=== PATIENT | male | born 1950 | race Caucasian/White ===

== ENCOUNTER 2021-02-13 10:31 | Emergency (ER) | payer OTHER, MEDICARE, SELFPAY ==
[2021-02-13 10:32] VITALS: BP 140/90; PULSE 94; RESP 20; TEMP 36.7; O2SAT 96; BMI 27.1
[2021-02-13 10:45] VITALS: BP 128/93; PULSE 82; RESP 18; TEMP 37.2; O2SAT 94; O2SAT 95
--- NOTE | 2021-02-13 10:53 | EKG12_ITS ---
Test Reason : SOB Blood Pressure : / mmHG Vent. Rate : 080 BPM Atrial Rate : 080 BPM P-R Int : 162 ms QRS Dur : 096 ms QT Int : 368 ms P-R-T Axes : 061 -45 013 degrees QTc Int : 424 ms Normal sinus rhythm Left anterior fascicular block Abnormal ECG Confirmed by KELSY NEVAREZ, BRINA ([id number]), editor city LETICIA BELLO ([id number]) on 02/17/2021 7:55:35 AM Referred By: BB/RU Confirmed By:BRINA TIERNEY MD
--- NOTE | 2021-02-13 10:54 | EX.ED.DYSGE1 ---
HPI History of Present Illness Chief Complaint: Shortness of Breath Detail of Chief Complaint: Shortness of breath that started 1-1/2 to 2 weeks ago Informant: patient Narrative Narrative: Patient presents to the emergency department stating that he does not feel well. Patient states that he has had a cough for a week and 1/2 to 2 weeks. He complains of exertional dyspnea. Patient has had intermittent fevers and body aches. He has had intermittent nausea and vomiting typically associated with cough. Patient complains of a headache. Patient has had the Covid vaccine. He denies any Covid exposures. Denies sick contacts. Patient is producing some sputum but it is milky white. Prior similar symptoms: No PFSH PFSH Medical History (Updated 02/13/21 @ 13:[address] Corie Womack DO) HTN (hypertension) Leukemia Home Medications amlodipine 5 mg PO/SL DAILY 02/13/21 [History Last Taken Unknown] benzonatate [Tessalon Perles] 100 mg PO TID PRN #20 cap 02/13/21 [Rx Last Taken Unknown] dasatinib 100 mg PO/SL DAILY 02/13/21 [History Last Taken Unknown] folic acid 1 mg PO/SL DAILY 02/13/21 [History Last Taken Unknown] hydrocodone-acetaminophen 1 tab PO Q4H PRN PRN 2 Days #10 tablet 02/13/21 [Rx Last Taken Unknown] hydroxychloroquine 200 mg PO/SL BID 02/13/21 [History Last Taken Unknown] levofloxacin 750 mg PO DAILY #4 tab 02/13/21 [Rx Last Taken Unknown] levofloxacin 750 mg PO DAILY 4 Days #4 tab 02/13/21 [Rx Last Taken Unknown] methotrexate 2.5 mg PO/SL QWEEK 02/13/21 [History Last Taken Unknown] prednisone 10 mg PO/SL PRN PRN 02/13/21 [History Last Taken Unknown] pregabalin 150 mg PO/SL BID 02/13/21 [History Last Taken Unknown] tizanidine 4 mg PO/SL PRN PRN 02/13/21 [History Last Taken Unknown] Allergy/AdvReac Type Severity Reaction Status Date / Time No Known Allergies Allergy Verified 02/13/21 10:54 Surgical History (Updated 02/13/21 @ 10:52 by Siddharth Chi) History of orthopedic surgery Hx of appendectomy Social History Smoking Status: Never smoker ROS ROS ED Constitutional Constitutional ED: Reports systems reviewed and no addt'l complaints, except as documented and fever(s); Denies body ache(s), change in weight or chills Eyes Eyes: Denies acute decrease in peripheral vision, change in vision, double vision or loss of vision ENT ENT ED: Reports none; Denies ear pain, lip swelling, loss taste/smell, neck pain, otalgia or sore throat Cardiovascular Cardiovascular: Reports none; Denies abdominal pain, chest pain with activity, leg edema, lightheadedness, palpitations, rapid heart rate or syncope Respiratory/Chest Respiratory/Chest: Reports none, cough, dyspnea and sputum; Denies change in mental status, dry cough, hemoptysis, shortness of breath at rest or shortness of breath with exertion Gastrointestinal Gastrointestinal: Reports none; Denies abdominal pain, change in stool character, diarrhea, hematemesis, hematochezia, melena, rectal bleeding or vomiting Genitourinary Genitourinary ED: Reports none; Denies abdominal discomfort, anuria, dysuria, genital pain or polyuria Musculoskeletal Musculoskeletal: Reports none and myalgias; Denies arthralgias, back pain, difficulty walking, extremity pain or muscle weakness Integumentary Reports none; Denies abscess or rash Neurologic Neurologic: Reports none and headache(s); Denies abnormal gait, confusion, focal weakness, frequent falls, loss of vision, numbness, paresthesias, radicular pain, vertigo or weakness Psychiatric Psychiatric: Reports systems reviewed and no addt'l complaints, except as documented and none; Denies behavioral changes, confusion, difficulty concentrating, hallucinations, suicidal ideation, tactile hallucinations or visual hallucinations Endocrine Endocrinology: Denies none, cold intolerance, excessive sweating, fatigue or heat intolerance Hematologic/Lymphatic Hematologic/Lymphatic: Reports none; Denies anemia, easy bleeding or easy bruising Allergic/Immunologic Allergic/Immunologic ED: Denies as per HPI, none, lip swelling, mouth swelling, throat swelling, tongue swelling or hives EXAM Physical Exam Const Vital Signs: 02/13/21 10:32 02/13/21 10:45 02/13/21 12:46 Temperature 98.0 F 98.9 F Temperature Source Temporal Temporal Pulse Rate 94 82 75 Respiratory Rate 20 H 18 24 H Respiratory Effort Short of Breath Respiratory Depth Normal Respiratory Pattern Normal Blood Pressure 140/90 H 128/93 H 130/82 H Blood Pressure Mean 106 104 98 Pulse Ox 96 95 95 Oxygen Delivery Method Room Air Room Air Room Air Positive well nourished and well developed General Appearance ED: well developed and NAD HEENT Reports TM's clear and moist mucous membranes normocephalic and atraumatic; Negative for trauma or tenderness Tympanic Membrane ED: Yes TM's clear Eyes PERRL and EOMs intact bilaterally General Eye ED: Negative for pale conjunctiva or scleral icterus Neck no lymphadenopathy, supple and no JVD General: Negative for tenderness Chest Wall inspection of chest normal and palpation of chest normal Chest: Negative for tenderness Resp normal respiratory effort and clear to auscultation bilaterally Effort and Inspection: Negative for respiratory distress or pain with movement Auscultation: Negative for rhonchi, wheezes or diminished lung sounds Cardio regular rate, regular rhythm, S1 normal heart sound, S2 normal heart sound and no murmurs Peripheral Pulses: pulses 2+ throughout GI normal to inspection, nondistended, normoactive bowel sounds, soft to palpation, non-tender, non-distended and no masses Back/Spine no CVA tenderness and no thoracic nor lumbar tenderness Extremity normal to inspection General Extremety ED: Negative for edema General Extremity: Negative for edema Neuro oriented x3, CN's II-XII intact bilaterally, no sensory deficits noted and gait normal Sensorium / Orientation: awake, alert, oriented to person, oriented to place and oriented to time Motor Exam: strength 5/5 throughout and strength abnormal Psych mental status grossly normal Skin no rashes or lesions noted and no wounds MDM MDM MDM Narrative Medical decision making narrative: IV line established on arrival. Patient was given Toradol for headache. His work-up consistent with Covid illness. CTA was negative for PE. He is not hypoxic even with ambulation. He has had symptoms for almost 2 weeks. Patient will be started on Levaquin to prevent bacterial superinfection. He will be given Tessalon Perles and a few [place] for headache and body aches. Patient to follow-up with the primary care physician within next 5 to 7 days. He is advised to return if increasing shortness of breath or condition should worsen anyway. Lab Data Attestation: I reviewed the patient's lab results. Labs: Laboratory Results - last 24 hr 02/13/21 02/13/21 02/13/21 11:14 11:14 11:14 WBC 6.3 RBC 4.52 L Hgb 14.9 Hct 44.1 MCV 97.6 H MCH 33.0 H MCHC 33.8 RDW Std Deviation 54.4 H RDW Coeff of Mannie 15.3 H Plt Count 177 MPV 9.2 Immature Gran % (Auto) 0.300 Neut % (Auto) 75.0 H Lymph % (Auto) 11.6 L Ritchie % (Auto) 9.6 Eos % (Auto) 3.3 Baso % (Auto) 0.2 Absolute Neuts (auto) 4.7 Absolute Lymphs (auto) 0.73 L Nucleated RBC % 0 Differential Comment SCANNED D-Dimer Quant (PE/DVT) 0.68 H* Sodium 137 Potassium 3.8 Chloride 104 Carbon Dioxide 27.0 Anion Gap 6 BUN 11 Creatinine 0.86 Estim Creat Clear Calc 87.56 Est GFR (MDRD) Af Amer 114 Est GFR (MDRD) Non-Af 94 BUN/Creatinine Ratio 12.8 Glucose 106 Lactic Acid Calcium 8.8 Troponin I High Sens 12 COVID-19 ([facility]) 02/13/21 02/13/21 11:14 11:14 WBC RBC Hgb Hct MCV MCH MCHC RDW Std Deviation RDW Coeff of Mannie Plt Count MPV Immature Gran % (Auto) Neut % (Auto) Lymph % (Auto) Ritchie % (Auto) Eos % (Auto) Baso % (Auto) Absolute Neuts (auto) Absolute Lymphs (auto) Nucleated RBC % Differential Comment D-Dimer Quant (PE/DVT) Sodium Potassium Chloride Carbon Dioxide Anion Gap BUN Creatinine Estim Creat Clear Calc Est GFR (MDRD) Af Amer Est GFR (MDRD) Non-Af BUN/Creatinine Ratio Glucose Lactic Acid 1.0 Calcium Troponin I High Sens COVID-19 ([facility]) Positive Radiography Diagnostic Testing: Radiology Impression Chest X-Ray 02/13/21 11:40 IMPRESSION: Bilateral pulmonary infiltrates in a preferential peripheral distribution. Pneumonitis associated with Covid should be ruled out. Electronically Signed: Jeronimo Murillo MD at 12:11 EDT , Service support , Chest CTA 02/13/21 11:57 IMPRESSION: Bilateral peripheral pulmonary infiltrates as described. Pneumonitis associated with Covid should be ruled out. Electronically Signed: Jeronimo Murillo MD at 12:48 EDT , Service support , 1 view chest x-ray obtained interpreted by myself as bilateral infiltrates. Radiology in agreement. EKG Initial EKG: Attestation: I personally reviewed and interpreted this EKG as follows: Comments: Sinus rhythm with a ventricular rate of 80 bpm with left anterior fascicular block Discharge Plan Triage Chief Complaint: Shortness of Breath ED Provider: Corie Womack Dx/Rx/DC Orders Clinical Impression: COVID-19 Instructions: Caring for Someone Who Has COVID-19 Prescriptions: New benzonatate [Tessalon Perles] 100 mg capsule 100 mg PO TID PRN (Reason: cough) Qty: 20 RF: 0 levofloxacin 750 mg tablet 750 mg PO DAILY 4 Days Qty: 4 RF: 0 hydrocodone-acetaminophen [hydrocodone-acetaminophen] 1 TABLET tablet 1 tab PO Q4H PRN PRN (Reason: Pain) 2 Days Qty: 10 RF: 0 levofloxacin 750 mg tablet 750 mg PO DAILY Qty: 4 RF: 0 No Action amlodipine 5 mg PO/SL DAILY RF: 0 dasatinib 100 mg PO/SL DAILY RF: 0 folic acid 1 mg PO/SL DAILY RF: 0 hydroxychloroquine 200 mg PO/SL BID RF: 0 methotrexate 2.5 mg PO/SL QWEEK RF: 0 prednisone 10 mg PO/SL PRN PRN (Reason: Pain) RF: 0 pregabalin 150 mg PO/SL BID RF: 0 tizanidine 4 mg PO/SL PRN PRN (Reason: Spasms) RF: 0 [facility] - Activity Restrictions/Additional Instructions: See your family doctor in 5 to 7 days. Return if increasing shortness of breath or conditions worsen anyway. Disposition Disposition: Home, Self Care
[2021-02-13] MEDS: 0.9% Normal Saline 1,000 ML 150 ML IV (11:17)
--- NOTE | 2021-02-13 11:40 | RAD_ITS ---
STUDY: X-RAY CHEST REASON FOR EXAM: Male, 70 years old. One-week history of body aches and cough. Headaches. TECHNIQUE: Single AP portable view of the chest. COMPARISON: Comparison is made with prior study dated 07/20/2011. FINDINGS: EKG electrodes are seen. Bilateral pulmonary infiltrates and a preferential peripheral distribution worse in the left hemithorax. Covid pneumonitis should be ruled out. There is no demonstrated pleural abnormality. Normal size heart. Normal mediastinum and srikanth. Normal visualized pulmonary arteries. There is atherosclerotic tortuosity of the aortic arch and descending thoracic aorta. There are diffuse degenerative changes of the visualized thoracic spine. Normal visualized ribs, clavicles, and shoulders. There is no demonstrated abnormality of the visualized soft tissue structures of the upper abdomen. RAD/Chest 1 View (Portable) IMPRESSION: Bilateral pulmonary infiltrates in a preferential peripheral distribution. Pneumonitis associated with Covid should be ruled out. Electronically Signed: Jeronimo Murillo MD at 12:11 EDT , Service support ,
[2021-02-13 11:44] LABS: Absolute Lymphocyte Count 0.73 X10^3/uL (0.83-4.51); Absolute Neutrophil Count 4.7 X10^3/uL (2.0-7.7); Basophil# 0.01 X10^3/uL; Basophil% 0.2 % (0-1); Eosinophil# 0.21 X10^3/uL; Eosinophils% 3.3 % (0-5); Hematocrit 44.1 % (40-54); Hemoglobin 14.9 g/dL (13.0-16.5); Lymphocyte # 0.73 X10^3/ul (0.83-4.51); Lymphocyte % 11.6 % (19-41); Mean Corp Hgb Conc 33.8 g/dL (32-36); Mean Corpuscular Volume 97.6 fL (80-94); Mean Platelet Vol. 9.2 fl (6.2-12.0); Monocyte% 9.6 % (0-10); NRBC Flagged by Analyzer 0 % (0-5); Neutrophil # 4.71 X10^3/uL (2.7-7.7); POSITIVE MORPHOLOGY YES; Platelet Count 177 K/mm3 (150-450); RBC Distribution Width CV 15.3 % (11.6-14.6); RBC Distribution Width SD 54.4 fl (35.1-43.9); Red Blood Count 4.52 M/mm3 (4.6-6.2); White Blood Count 6.3 K/mm3 (4.4-11.0)
[2021-02-13 11:47] LABS: Differential Indicated SCAN CRITERIA MET
[2021-02-13 11:53] LABS: D-Dimer Quantitative (DVT/PE) 0.68 FEU/ug/m (0.27-0.49)
--- NOTE | 2021-02-13 11:57 | CT_ITS ---
STUDY: CTA CHEST REASON FOR EXAM: Male, 70 years old. dyspnea, elevated d-dimer RADIATION DOSAGE (If Supplied By Facility): CTDIvol = ( 12.32 ) mGy, DLP = ( 405.21 ) mGycm TECHNIQUE: The examination was performed with the intravenous administration of IV 100mL Isovue-370. Post-processing of the angiographic images was performed, with multiplanar reformation and 3D reconstruction. Individualized dose optimization techniques were used for this CT. COMPARISON: Comparison is made with prior chest radiograph done earlier today. FINDINGS: Normal enhancement of the main pulmonary artery and right and left pulmonary arteries. Normal enhancement of the bilateral peripheral pulmonary arteries. There is no demonstrated pulmonary embolism. Normal thoracic aorta and visualized great vessels. There is no demonstrated aortic dissection. There are calcifications of the coronary arteries. There are calcified mediastinal lymph nodes. Normal hilar regions. Normal visualized trachea and bronchi. The lungs are well expanded. Patchy areas of alveolar infiltration involving both lungs worse in the lower lobes and the preferential peripheral distribution. This is suggestive of Covid pneumonitis. Normal pleura. Normal chest wall structures. There are degenerative changes of thoracic spine. Normal visualized upper abdomen. CT/CTA Chest W/WO Contrast IMPRESSION: Bilateral peripheral pulmonary infiltrates as described. Pneumonitis associated with Covid should be ruled out. Electronically Signed: Jeronimo Murillo MD at 12:48 EDT , Service support ,
[2021-02-13 11:58] LABS: Anion Gap 6 (5-15); BUN 11 mg/dL (7-18); BUN/Creat Ratio 12.8 RATIO (10-20); Calcium,Total 8.8 mg/dL (8.5-10.1); Chloride 104 mmol/L (98-107); Creatinine, Serum 0.86 mg/dL (0.70-1.30); EST Glomerular Filtration Rate 94 mL/min (>60); Est Glom Filt Rate - Afr Amer 114 mL/min (>60); Estimated Creatinine Clearance 87.56 ml/min; Glucose 106 mg/dL (74-106); Potassium 3.8 mmol/L (3.5-5.1); Sodium Level 137 mmol/L (136-145); Troponin-I HS 12 pg/mL (3.0-78.0)
[2021-02-13 11:59] LABS: Differential Comment SCANNED
[2021-02-13] MEDS: Ketorolac 15 MG/ML Vial IV (12:11)
[2021-02-13 12:46] VITALS: BP 130/82; PULSE 75; RESP 24; O2SAT 95
[2021-02-13 13:00] VITALS: O2SAT 95
[2021-02-13 13:33] LABS: Probe Check PASS; Specimen Processing Control PASS
[2021-02-13] MEDS: levoFLOXacin 750 MG Tablet PO (14:28)
[2021-02-13 14:29] VITALS: BP 125/73; PULSE 82; RESP 16; O2SAT 97
== END 2021-02-13 14:30 | disposition home or self-care (01) ==
PROVIDERS: Emergency Provider Emergency Medicine
DX: U07.1 COVID-19 (principal); I10 Essential (primary) hypertension; Z79.899 Other long term (current) drug therapy
CPT/HCPCS: 71045; 71275; 80048; 83605; 84484; 85025; 85379; 87040; 87635; 93005; 96374; 99284; J7030; Q9967; U0005; U0003

== ENCOUNTER 2021-03-11 15:28 | Emergency (ER) | payer OTHER, SELFPAY ==
[2021-03-11 15:29] VITALS: BP 156/97; PULSE 72; RESP 14; TEMP 36.6; O2SAT 96; BMI 29.2
--- NOTE | 2021-03-11 15:38 | EX.ED.UPPERE ---
HPI History of Present Illness HPI Narrative: Tripped and fell yesterday injuring his left wrist. Chief Complaint: Upper Extremity Injury Informant: patient Occured/Mechanism Mechanism/Context: Yes injury Onset/Context/Timing Onset: Yesterday Context: Sudden Onset Timing: Continuous Quality of Pain: Sharp Current Severity: Moderate Maximum Severity: Moderate Associated Symptoms Associated Symptoms: Negative for Parasthesia and Weakness Narrative Narrative: 70-year-old male insisted that he has not tripped and fell yesterday injuring his left wrist. Patient is right-hand dominant. Complaining of pain. No other complaints or injuries. Did not hit his head. No LOC. He does have a history of leukemia. Prior similar symptoms: No Recent Illness/Hospitalization: No PFSH PFSH Medical History (Updated 03/11/21 @ 16:[address] 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 Medications amlodipine 5 mg PO/SL DAILY 02/13/21 [History Last Taken Unknown] benzonatate [Tessalon Perles] 100 mg PO TID PRN #20 cap 02/13/21 [Rx Last Taken Unknown] dasatinib 100 mg PO/SL DAILY 02/13/21 [History Last Taken Unknown] folic acid 1 mg PO/SL DAILY 02/13/21 [History Last Taken Unknown] hydroxychloroquine 200 mg PO/SL BID 02/13/21 [History Last Taken Unknown] methotrexate 2.5 mg PO/SL QWEEK 02/13/21 [History Last Taken Unknown] prednisone 10 mg PO/SL PRN PRN 02/13/21 [History Last Taken Unknown] pregabalin 150 mg PO/SL BID 02/13/21 [History Last Taken Unknown] tizanidine 4 mg PO/SL PRN PRN 02/13/21 [History Last Taken Unknown] Allergy/AdvReac Type Severity Reaction Status Date / Time No Known Allergies Allergy Verified 03/11/21 15:52 Surgical History History of orthopedic surgery Hx of appendectomy Social History Smoking Status: Former smoker ROS ROS ED ROS Narrative Denies recent illness. Review of Systems ROS Unobtainable: Denies due to encephalopathy Constitutional Constitutional ED: Denies fever(s) Eyes Eyes: Denies change in vision ENT ENT ED: Denies ear pain Cardiovascular Cardiovascular: Denies chest pain Respiratory/Chest Respiratory/Chest: Denies cough or dyspnea Gastrointestinal Gastrointestinal: Denies abdominal pain, diarrhea, nausea or vomiting Genitourinary Genitourinary ED: Denies dysuria or hematuria Musculoskeletal Musculoskeletal: Denies myalgias Integumentary Denies rash Neurologic Neurologic: Denies headache(s) Psychiatric Psychiatric: Denies depression Endocrine Endocrinology: Denies polyuria Hematologic/Lymphatic Hematologic/Lymphatic: Denies easy bruising Allergic/Immunologic Allergic/Immunologic ED: Denies urticaria EXAM Physical Exam Narrative Exam Narrative: Or male no acute distress. Vital signs stable afebrile. HEENT exam unremarkable atraumatic. Lungs are clear. Heart regular rate and rhythm. Tenderness left wrist with decreased range of motion. Able to move his fingers. Normal touch sensation. Skin intact. Left proximal forearm, elbow upper arm and shoulder nontender. Otherwise exam unremarkable. Const Vital Signs: 03/11/21 15:29 Temperature 97.9 F Temperature Source Temporal Pulse Rate 72 Respiratory Rate 14 Blood Pressure 156/97 H Blood Pressure Mean 116 Pulse Ox 96 Oxygen Delivery Method Room Air Positive well nourished and well developed; Negative for obese, cachectic, contractures or unkempt General Appearance ED: well developed; Negative for unkempt, cachectic or contractures Nutritional Appearance: Negative for cachectic or obese HEENT Reports moist mucous membranes normocephalic and atraumatic; Negative for trauma or tenderness Eyes PERRL and EOMs intact bilaterally Neck full ROM and supple General: Negative for tenderness Chest Wall inspection of chest normal and palpation of chest normal Resp normal respiratory effort and clear to auscultation bilaterally Effort and Inspection: Negative for pain with movement Auscultation: Negative for rales, rhonchi or wheezes Cardio regular rate, regular rhythm, S1 normal heart sound, S2 normal heart sound and no murmurs GI non-tender, non-distended and no masses Auscultation: normoactive bowel sounds Palpation: soft; Negative for tender, guarding or rebound tenderness present Back/Spine no CVA tenderness General Back: Negative for CVA tenderness Cervical Spine: Negative for cervical spine tenderness Thoracic Spine / Upper Back: Negative for thoracic spinal tenderness Lumbar Spine / Lower Back: Negative for lumbar spinal tenderness Extremity normal to inspection and full ROM Extremity Narrative: Except left wrist is swollen and tender with decreased range of motion. Clinically exam is concerning for a closed fracture. General Extremety ED: Negative for edema General Extremity: Negative for edema Neuro oriented x3 and moves all extremities Sensorium / Orientation: alert, oriented to person, oriented to place and oriented to time; Negative for orientation impaired, lethargic or stuporous Motor Exam: strength 5/5 throughout Psych mental status grossly normal Appearance: Negative for unkempt Skin Lesions: no lesions Rashes: no rashes Trauma: no lacerations or abrasions; Negative for abrasion or laceration MDM MDM MDM Narrative Medical decision making narrative: 70-year-old status post fall with concern for left wrist fracture. X-ray being obtained. Repeat exam unchanged. Went over the x-ray with the patient. To be placed in a Velcro wrist splint follow-up if not improving in a week. I did explain I am sometimes nondisplaced fractures not seen on the first x-ray if this is not improving he will need to be reevaluated. Radiography Diagnostic Testing: Left wrist x-ray 3 views interpreted by myself shows no acute abnormality. No fracture seen. Also read by the radiologist agrees. Discharge Plan Triage Chief Complaint: Upper Extremity Injury ED Provider: Sherwin Osborne Dx/Rx/DC Orders Clinical Impression: Left wrist sprain, Fall Instructions: ED Wrist Sprain Prescriptions: No Action amlodipine 5 mg PO/SL DAILY RF: 0 dasatinib 100 mg PO/SL DAILY RF: 0 folic acid 1 mg PO/SL DAILY RF: 0 hydroxychloroquine 200 mg PO/SL BID RF: 0 methotrexate 2.5 mg PO/SL QWEEK RF: 0 prednisone 10 mg PO/SL PRN PRN (Reason: Pain) RF: 0 pregabalin 150 mg PO/SL BID RF: 0 tizanidine 4 mg PO/SL PRN PRN (Reason: Spasms) RF: 0 benzonatate [Tessalon Perles] 100 mg capsule 100 mg PO TID PRN (Reason: cough) Qty: 20 RF: 0 [facility] - 1 Week if not improving Activity Restrictions/Additional Instructions: Ice and elevate your left wrist to decrease pain and swelling. Tylenol for pain and Motrin for pain and swelling. Follow-up with your doctor if not improving or if getting worse then needs to be reevaluated and/or re-x-rayed. Disposition Disposition: Home, Self Care
--- NOTE | 2021-03-11 15:42 | RAD_ITS ---
STUDY: X-RAY - LEFT WRIST REASON FOR EXAM: Male, 70 years old. Injury TECHNIQUE: 3 view(s) of the wrist were obtained. COMPARISON: None. FINDINGS: Normal visualized distal radius and ulna. Normal radiocarpal articulation. Normal distal radioulnar articulation. Normal carpal bones. Normal carpal articulations. Calcification of the triangular fibrocartilage. Normal carpometacarpal articulation of the thumb. Normal second through fifth carpometacarpal articulations. Normal visualized metacarpal bones. Soft tissue swelling. RAD/Wrist min 3 Views IMPRESSION: Soft tissue swelling. Calcification of the triangular fibrocartilage Electronically Signed: Jeronimo Murillo MD at 15:54 EDT , Service support ,
[2021-03-11 16:32] VITALS: BP 139/82; PULSE 66; RESP 18
== END 2021-03-11 16:38 | disposition home or self-care (01) ==
PROVIDERS: Emergency Provider Emergency Medicine
DX: S63.502A Unspecified sprain of left wrist, initial encounter (principal); I10 Essential (primary) hypertension; M06.9 Rheumatoid arthritis, unspecified; Z87.891 Personal history of nicotine dependence; W01.0XXA Fall on same level from slipping, tripping and stumbling without subsequent striking against object, initial encounter; Z79.899 Other long term (current) drug therapy
CPT/HCPCS: 73110; 99282

== ENCOUNTER 2021-08-24 16:35 | Observation (INO) | payer OTHER, SELFPAY ==
[2021-08-24 16:36] VITALS: BP 148/84; PULSE 75; PULSE 76; RESP 13; RESP 15; TEMP 36.2; O2SAT 97; O2SAT 98; BMI 28.3
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
[2021-08-24] MEDS: fentaNYL 100 MCG/2 ML Ampul 50 MCG IV ×2 (17:22→18:13)
[2021-08-24] MEDS: Ondansetron 4 MG/2 ML Vial IV (17:23)
[2021-08-24 17:27] LABS: Absolute Lymphocyte Count 0.75 X10^3/uL (0.83-4.51); Absolute Neutrophil Count 5.8 X10^3/uL (2.0-7.7); Basophil# 0.02 X10^3/uL; Basophil% 0.3 % (0-1); Eosinophil# 0.08 X10^3/uL; Eosinophils% 1.1 % (0-5); Hematocrit 42.3 % (40-54); Hemoglobin 14.1 g/dL (13.0-16.5); Lymphocyte # 0.75 X10^3/ul (0.83-4.51); Lymphocyte % 10.5 % (19-41); Mean Corp Hgb Conc 33.3 g/dL (32-36); Mean Corpuscular Hgb 33.8 pg (27.0-32.0); Mean Corpuscular Volume 101.4 fL (80-94); Mean Platelet Vol. 9.4 fl (6.2-12.0); Monocyte# 0.41 X10^3/uL; Monocyte% 5.8 % (0-10); NRBC Flagged by Analyzer 0 % (0-5); Neutrophil # 5.77 X10^3/uL (2.7-7.7); Neutrophil % 81.2 % (47-70); Platelet Count 191 K/mm3 (150-450); RBC Distribution Width SD 59.6 fl (35.1-43.9); Red Blood Count 4.17 M/mm3 (4.6-6.2); White Blood Count 7.1 K/mm3 (4.4-11.0)
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
[2021-08-24 17:45] LABS: Anion Gap 3 (5-15); BUN 16 mg/dL (7-18); BUN/Creat Ratio 17.8 RATIO (10-20); Calcium,Total 9.4 mg/dL (8.5-10.1); Chloride 109 mmol/L (98-107); EST Glomerular Filtration Rate 89 mL/min (>60); Est Glom Filt Rate - Afr Amer 108 mL/min (>60); Estimated Creatinine Clearance 83.67 ml/min; Glucose 111 mg/dL (74-106); Potassium 4.3 mmol/L (3.5-5.1); Sodium Level 137 mmol/L (136-145); Troponin-I HS 6 pg/mL (3.0-78.0)
[2021-08-24] MEDS: HYDROmorphone 1 MG/ML Syringe IV (19:19)
[2021-08-24 19:22] VITALS: PULSE 83; RESP 18; O2SAT 99
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
[2021-08-24 21:05] VITALS: PULSE 69; RESP 11; O2SAT 97
[2021-08-24 21:34] LABS: Troponin-I HS 10 pg/mL (3.0-78.0)
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
--- NOTE | 2021-08-24 22:34 | ED.RN ---
[facility]IENT
[2021-08-24 22:46] VITALS: BP 135/80; PULSE 75; RESP 13; TEMP 37.1; O2SAT 96
[2021-08-24 23:01] VITALS: BMI 27.0
[2021-08-24 23:11] VITALS: PULSE 76
[2021-08-24 23:32] VITALS: BP 136/72; PULSE 72; RESP 18; TEMP 36.8; O2SAT 97
[2021-08-24] MEDS: 0.9% Normal Saline 1,000 ML 100 ML IV (23:39)
[2021-08-24] MEDS: Arthritis Pain Compound 60 CLICK TUBE TOPICAL (23:39)
[2021-08-24] MEDS: Ketorolac 15 MG/ML Vial IV (23:43)
[2021-08-24] MEDS: Temazepam 15 MG Capsule PO (23:47)
[2021-08-25 03:00] VITALS: PULSE 72
[2021-08-25 05:14] VITALS: BP 116/71; PULSE 64; RESP 18; TEMP 36.8; O2SAT 95
[2021-08-25] MEDS: Ketorolac 15 MG/ML Vial IV (05:24)
[2021-08-25] MEDS: oxyCODONE 5 MG Tablet 10 MG PO (05:25)
[2021-08-25] MEDS: Acetaminophen 325 MG Tablet 650 MG PO (05:25)
[2021-08-25] MEDS: 0.9% Saline Lock 10 ML Syringe IV (05:25)
[2021-08-25 07:00] VITALS: PULSE 62
[2021-08-25 08:12] VITALS: O2SAT 93
[2021-08-25] MEDS: Arthritis Pain Compound 60 CLICK TUBE TOPICAL (08:41)
[2021-08-25] MEDS: Hydroxychloroquine 200 MG Tablet PO (08:41)
[2021-08-25] MEDS: Folic Acid 1 MG Tablet PO (08:41)
[2021-08-25] MEDS: Pregabalin 75 MG Capsule 150 MG PO (08:41)
[2021-08-25] MEDS: amLODIPine 5 MG Tablet PO (08:41)
--- NOTE | 2021-08-25 10:10 | CASEMGMT ---
RN DEVI Face to Face with patient for initial transition planning/care coordination assessment. RN CM introduced self and role at [facility]. Patient lying in bed, alert and oriented. Patient willing to participate in assessment and is able to answer all questions appropriately. Care providers, pharmacy, and demographics verified. Patient wishes to discharge home, denies need for home health at this time. Patient states he has no further needs or concerns at this time. CM to follow for discharge planning needs that may arise. 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 Patient states he is independent at home. Transportation: self, daughter DME/HHC: Patient states he has shower chair, raised toilet, cane, walker, and grab bars at home. Patient denies previous HHC or SNF. Disposition Plan: Patient to discharge home with family support and follow-up plans in place. Jeannine PATINO, RN, CM
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
[2021-08-25 11:00] VITALS: BP 133/71; PULSE 60; PULSE 62; RESP 18; TEMP 36.7; O2SAT 95
== END 2021-08-25 12:48 | disposition home or self-care (01) ==
LOC: ED 22:16 → MS3 22:32
PROVIDERS: Admitting Provider Family Medicine; Emergency Provider Emergency Medicine; Visit Provider Internal Medicine
DX: R07.89 Other chest pain (principal); M06.9 Rheumatoid arthritis, unspecified; Z87.891 Personal history of nicotine dependence; K57.90 Diverticulosis of intestine, part unspecified, without perforation or abscess without bleeding; I10 Essential (primary) hypertension; M17.11 Unilateral primary osteoarthritis, right knee; M19.032 Primary osteoarthritis, left wrist; N28.1 Cyst of kidney, acquired; V53.5XXA Driver of pick-up truck or van injured in collision with car, pick-up truck or van in traffic accident, initial encounter; M11.261 Other chondrocalcinosis, right knee; Z86.16 Personal history of COVID-19; Z79.899 Other long term (current) drug therapy; Z85.6 Personal history of leukemia
CPT/HCPCS: 70450; 71260; 72125; 73110; 73564; 74177; 80048; 84484; 85025; 93005; 96361; 96374; 96375; 96376; 97161; 97166; 99218; 99251; 99285; 99406; J7030; Q9967; A4216; G0378; G0463; J2405

== ENCOUNTER 2021-08-31 09:58 | Emergency (ER) | payer OTHER, SELFPAY ==
[2021-08-31 10:01] VITALS: BP 157/91; PULSE 75; RESP 20; TEMP 36.5; O2SAT 97; BMI 42.0
--- NOTE | 2021-08-31 10:08 | CT_ITS ---
EXAM: CT ANGIOGRAPHY CHEST WITHOUT AND WITH INTRAVENOUS CONTRAST : 1950 CLINICAL INDICATION: chest pain TECHNIQUE: Helically acquired angiography images were obtained of the chest without and with intravenous contrast. This CT exam was performed using one or more of the following dose reduction techniques: automated exposure control, adjustment of the mA and/or kV according to patient size, and/or use of iterative reconstruction technique. This report was created using [email or web address] report generation technology. MIP reconstructed images were created and reviewed. CONTRAST: IV 100mL [id number] COMPARISON: None. FINDINGS: PULMONARY ARTERIES: Unremarkable. Normal in caliber. No evidence of pulmonary embolism. AORTA: Unremarkable. Normal in caliber. No evidence of dissection. GREAT VESSELS OF AORTIC ARCH: Unremarkable. Normal in caliber. No evidence of dissection. LUNGS AND PLEURAL SPACES: There is minimal bibasilar airspace disease greater on the right than on the left. No mass. No pleural effusion or thickening. HEART: Unremarkable. Heart size is normal. No pericardial effusion. No signs of right heart strain, ratio of right ventricle to left ventricle measures less than 1. MEDIASTINUM: Unremarkable. No mediastinal or hilar adenopathy. Esophagus is unremarkable. No hiatal hernia. THYROID: Unremarkable. No thyroid lesions. BONES/JOINTS: Unremarkable. No suspicious lytic or blastic abnormality. CT/CTA Chest W/WO Contrast IMPRESSION: 1. No evidence of pulmonary embolus. 2. Bibasilar airspace disease greater on the right thigh the left foot may represent atelectasis or developing pneumonia. Individualized dose optimization techniques were used for this CT. at 1146 Reported and signed by: Isaiah Sutton MD Electronically Signed: Isaiah Sutton MD at 11:45 EDT ,
--- NOTE | 2021-08-31 10:08 | EKG12_ITS ---
Test Reason : CP Blood Pressure : / mmHG Vent. Rate : 074 BPM Atrial Rate : 074 BPM P-R Int : 152 ms QRS Dur : 102 ms QT Int : 410 ms P-R-T Axes : 012 -50 057 degrees QTc Int : 455 ms Normal sinus rhythm Left anterior fascicular block Poor R wave progression Abnormal ECG Confirmed by KACIE NEVAREZ, HEVER ([id number]), international editorial producer LETICIA BELLO ([id number]) on 09/01/2021 12:58:42 PM Referred By: DIDIER Confirmed By:HEVER HESTER MD
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
[2021-08-31] MEDS: Ketorolac 30 MG/ML Syringe IV (10:18)
[2021-08-31] MEDS: HYDROmorphone 1 MG/ML Syringe IV (10:18)
[2021-08-31 10:28] LABS: Absolute Lymphocyte Count 0.65 X10^3/uL (0.83-4.51); Absolute Neutrophil Count 5.8 X10^3/uL (2.0-7.7); Basophil# 0.02 X10^3/uL; Basophil% 0.3 % (0-1); Eosinophil# 0.21 X10^3/uL; Eosinophils% 2.9 % (0-5); Hematocrit 40.6 % (40-54); Hemoglobin 13.8 g/dL (13.0-16.5); Lymphocyte # 0.65 X10^3/ul (0.83-4.51); Lymphocyte % 8.9 % (19-41); Mean Corpuscular Hgb 34.2 pg (27.0-32.0); Mean Corpuscular Volume 100.7 fL (80-94); Mean Platelet Vol. 10.2 fl (6.2-12.0); Monocyte% 8.2 % (0-10); NRBC Flagged by Analyzer 0 % (0-5); Neutrophil # 5.83 X10^3/uL (2.7-7.7); Neutrophil % 79.3 % (47-70); Platelet Count 169 K/mm3 (150-450); RBC Distribution Width CV 16.2 % (11.6-14.6); RBC Distribution Width SD 58.4 fl (35.1-43.9); Red Blood Count 4.03 M/mm3 (4.6-6.2); White Blood Count 7.3 K/mm3 (4.4-11.0)
[2021-08-31 10:48] LABS: ALB/GLOB Ratio 0.9 RATIO (0.9-2.4); AST(SGOT) 25 U/L (15-37); Alanine Aminotransfer ALT/SGPT 32 U/L (16-61); Albumin, Serum 3.3 g/dL (3.2-5.0); Alkaline Phosphatase 87 U/L (45-117); Anion Gap 6 (5-15); BUN 9 mg/dL (7-18); BUN/Creat Ratio 11.4 RATIO (10-20); Calcium,Total 8.7 mg/dL (8.5-10.1); Chloride 107 mmol/L (98-107); Creatinine, Serum 0.79 mg/dL (0.70-1.30); EST Glomerular Filtration Rate 103 mL/min (>60); Est Glom Filt Rate - Afr Amer 125 mL/min (>60); Globulin 3.8 g/dL (2.2-4.2); Glucose 99 mg/dL (74-106); Potassium 4.2 mmol/L (3.5-5.1); Protein, Total 7.1 g/dL (6.4-8.2); Sodium Level 137 mmol/L (136-145); Troponin-I HS 5 pg/mL (3.0-78.0)
== END 2021-08-31 12:11 | disposition home or self-care (01) ==
PROVIDERS: Emergency Provider Emergency Medicine; Visit Provider Emergency Medicine
DX: J18.9 Pneumonia, unspecified organism (principal); M62.830 Muscle spasm of back; Z86.16 Personal history of COVID-19; Z87.891 Personal history of nicotine dependence; V89.2XXA Person injured in unspecified motor-vehicle accident, traffic, initial encounter
CPT/HCPCS: 71275; 80053; 84484; 85025; 93005; 96374; 96375; 99285; Q9967; A4216

== ENCOUNTER → 2022-09-28 | Outpatient (CLI) | payer OTHER, SELFPAY ==
[2022-09-28 08:37] LABS: Hematocrit 40.8 % (40-54); Hemoglobin 13.5 g/dL (13.0-16.5); Mean Corp Hgb Conc 33.1 g/dL (32-36); Mean Corpuscular Volume 105.7 fL (80-94); Mean Platelet Vol. 10.4 fl (6.2-12.0); Platelet Count 174 K/mm3 (150-450); RBC Distribution Width CV 15.1 % (11.6-14.6); RBC Distribution Width SD 58.1 fl (35.1-43.9); Red Blood Count 3.86 M/mm3 (4.6-6.2); White Blood Count 7.4 K/mm3 (4.4-11.0)
== END | disposition home or self-care (01) ==
LOC: LAB 08:02
PROVIDERS: Visit Provider Chiropractor
DX: C92.10 Chronic myeloid leukemia, BCR/ABL-positive, not having achieved remission (principal)
CPT/HCPCS: 36415; 85027

== ENCOUNTER 2023-07-15 09:38 | Emergency (ER) | payer OTHER, SELFPAY ==
[2023-07-15 09:39] VITALS: BP 160/84; PULSE 60; RESP 14; TEMP 36.2; O2SAT 97; BMI 26.7
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
[2023-07-15] MEDS: dexAMETHasone 10 MG/ML Vial IM (10:08)
[2023-07-15 10:14] VITALS: BP 139/82; PULSE 84; RESP 16; TEMP 36.4; O2SAT 96
--- OUTSIDE RECORDS SUMMARY | 2023-07-15 12:00 | XMS RPT_ITS | CCD ---
Author Name Unknown Address [address] [place] [address] Organization [facility] Results Test Name Value Interpretation Reference Range Facil ity Summary Purpose Family History No Family History Records Found Advance Directives No Advanced Directives Records Found Additional Source Comments (unrecognized sect ion and content) No Status Records Found INFORMATION SOURCE (unrecogn ized section and content) FOR RECORDS PERTAINING TO PATIENTS WHO ARE OR HAVE BEEN ENROLLED IN A CHEMICAL DEPENDENCY/SUBSTANCEABUSE PROGRAM, SOME INFORMATION MAY BE OMITTED. This clinical summary was aggregated from multiple sources. Caution should be exercised in using it in the provision of clinical care. This summary normalizes information from multiple sources, and as a consequence, information in this document may materially change the coding, format and clinical context of patient data. In addition, data may be omitted in some cases. CLINICAL DECISIONS SHOULD BE BASED ON THE PRIMARY CLINICAL RECORDS. [employer] provides no warranty or guarantee of the accuracy or completeness of information in this document.
== END 2023-07-15 10:17 | disposition home or self-care (01) ==
LOC: ED 10:09
PROVIDERS: Emergency Provider Emergency Medicine; Visit Provider Emergency Medicine
DX: L30.8 Other specified dermatitis (principal); M06.9 Rheumatoid arthritis, unspecified; Z87.891 Personal history of nicotine dependence; Z86.16 Personal history of COVID-19
CPT/HCPCS: 96372; 99282

== ENCOUNTER 2023-10-19 10:02 | Emergency (ER) | payer OTHER, SELFPAY ==
[2023-10-19 10:03] VITALS: BP 177/89; PULSE 60; RESP 18; TEMP 36.6; O2SAT 99
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
[2023-10-19 10:35] LABS: Bacteria 0 SEEN /hpf (None Seen); Color, Urine Yellow (Yellow); Glucose, Dipstick Normal (Normal); Ketone-Dipstick Negative (Negative); Leukocyte Esterase-Dipstick Negative /ul (Negative); Mucous, Urine 0 SEEN /hpf (<or=2+); Nitrite-Dipstick Negative (Negative); Occult Blood-Urine Negative /ul (Negative); Protein-Dipstick Negative (Negative); Red Blood Cells-Urine 0 SEEN /hpf (0-5); Urine Bilirubin Dipstick Negative (Negative); Urine Clarity Clear (Clear); Urine Urobilinogen Normal (Normal)
--- NOTE | 2023-10-19 10:36 | CT_ITS ---
STUDY: CT ABDOMEN AND PELVIS WITHOUT CONTRAST REASON FOR EXAM: Male, 72 years old. Kidney Stone. Right flank pain. Dark urine. Past history of leukemia. RADIATION DOSAGE (If Supplied By Facility): CTDIvol = ( 9.37 ) mGy, DLP = ( 480.05 ) mGycm TECHNIQUE: Transaxial images were obtained from the dome of the diaphragm to the symphysis pubis without oral contrast, and without intravenous contrast. Sagittal and coronal images were reconstructed. Individualized dose optimization techniques were used for this CT. COMPARISON: None. FINDINGS: Mild increased linear markings at the lung bases suggestive of linear atelectasis and/or scarring. The visualized portions of the heart are within normal limits. Normal liver. Normal gallbladder and extrahepatic biliary system. Normal spleen. Normal pancreas. Normal bilateral adrenal glands. Normal right kidney. There is a 4.4 cm x 3.8 cm cyst in the upper mid medial aspect of the left kidney. Findings suggestive of left parapelvic renal cysts. No obstructive uropathy is seen. Normal visualized stomach. Normal small intestine. There are multiple colonic diverticula consistent with diverticulosis. The patient is status post appendectomy. There is diffuse atherosclerotic calcification of the abdominal aorta, without a demonstrated aneurysm. Normal inferior vena cava. Normal retroperitoneum. Normal urinary bladder. There is enlargement of the prostate gland. Prostate measures 4.3 cm by 5.3 cm. Calcifications are seen within it. There is also evidence of calcification of the penis Normal abdominal wall. There are diffuse degenerative changes of the visualized lumbar spine. Loss of the normal lumbar lordosis. Minimal dextroscoliosis. Prior right total hip replacement. CT/Abdomen/Pelvis without Cont IMPRESSION: Left renal cyst and findings suggestive of left para pelvic renal cyst. No obstructive uropathy is seen. Prostatic enlargement with indentation of the bladder base. Sigmoid diverticulosis. Electronically Signed: Jeronimo Murillo MD at 11:15 EDT ,
[2023-10-19] MEDS: Ondansetron 4 MG/2 ML Vial IV (10:39)
[2023-10-19] MEDS: 0.9% Normal Saline (1000mL) 1,000 ML 999 ML IV (10:39)
[2023-10-19 10:42] LABS: Squamous Epithelial Cells - UA 0-5 SEEN /hpf (0-5); White Blood Cells 0-5 SEEN /hpf (0-5)
[2023-10-19 10:46] LABS: Absolute Lymphocyte Count 0.85 X10^3/uL (0.83-4.51); Absolute Neutrophil Count 3.7 X10^3/uL (2.0-7.7); Basophil# 0.02 X10^3/uL; Basophil% 0.4 % (0-1); Eosinophils% 5.6 % (0-5); Hematocrit 34.5 % (40-54); Hemoglobin 11.5 g/dL (13.0-16.5); Lymphocyte # 0.85 X10^3/ul (0.83-4.51); Lymphocyte % 15.9 % (19-41); Mean Corp Hgb Conc 33.3 g/dL (32-36); Mean Corpuscular Hgb 35.7 pg (27.0-32.0); Mean Corpuscular Volume 107.1 fL (80-94); Mean Platelet Vol. 10.4 fl (6.2-12.0); Monocyte# 0.53 X10^3/uL; Monocyte% 9.9 % (0-10); NRBC Flagged by Analyzer 0 % (0-5); Neutrophil # 3.65 X10^3/uL (2.7-7.7); Platelet Count 186 K/mm3 (150-450); RBC Distribution Width SD 63.1 fl (35.1-43.9); Red Blood Count 3.22 M/mm3 (4.6-6.2); White Blood Count 5.4 K/mm3 (4.4-11.0)
[2023-10-19 11:00] LABS: Anion Gap 5 (5-15); BUN 13 mg/dL (7-18); BUN/Creat Ratio 17.6 RATIO (10-20); Calcium,Total 8.9 mg/dL (8.5-10.1); Chloride 112 mmol/L (98-107); Creatinine, Serum 0.74 mg/dL (0.70-1.30); EST Glomerular Filtration Rate 111 mL/min (>60); Est Glom Filt Rate - Afr Amer 135 mL/min (>60); Glucose 95 mg/dL (74-106); Potassium 3.7 mmol/L (3.5-5.1); Sodium Level 141 mmol/L (136-145)
[2023-10-19 11:07] VITALS: BP 145/87; PULSE 51; RESP 16; O2SAT 95
[2023-10-19 12:18] VITALS: BP 145/87; PULSE 69; RESP 16; TEMP 36.6; O2SAT 100
== END 2023-10-19 12:19 | disposition home or self-care (01) ==
PROVIDERS: Emergency Provider Emergency Medicine; Visit Provider Emergency Medicine
DX: R10.9 Unspecified abdominal pain (principal); I10 Essential (primary) hypertension; Z87.891 Personal history of nicotine dependence; Z86.16 Personal history of COVID-19
CPT/HCPCS: 74176; 80048; 81001; 85025; 96374; 99282; J7030; J2405